=== PATIENT | male | born 1960 | race Caucasian/White ===

== ENCOUNTER 2023-10-09 06:28 | Day surgery (SDC) | payer OTHER, SELFPAY ==
[2023-10-09] VITALS (10 sets, daily range): BP systolic 124–153; BP diastolic 73–98; BMI 34.8
[2023-10-09 11:24] LABS: Glucose - Point of Care 143 mg/dl (70-99)
[2023-10-09] MEDS: TYLENOL 1000 MG PO (11:30)
[2023-10-09] MEDS: LOPRESSOR 100 MG PO (11:30)
[2023-10-09] MEDS: NORMOSOL-R 1000 IV (11:40)
--- NOTE | 2023-10-09 12:08 | W.SUR.PREOP ---
Pre-Operative Surgical Note
-
I have examined this patient prior to the performance of the scheduled procedure.
The patient's condition is unchanged from the time of the current History and
Physical and the patient is able to undergo the scheduled procedure.
[2023-10-09 13:28] LABS: Glucose - Point of Care 133 mg/dl (70-99)
--- NOTE | 2023-10-09 15:20 | W.IMMPOSTOP ---
Surgical Immed Post Op Note
-
Primary Surgeon: Ritesh James MD
Assisting Surgeon: None
Pre-op Diagnosis: Left inguinal hernia
Post-op Diagnosis: Same
Procedure Performed: Robotic left inguinal hernia repair with mesh
Anesthesia Type: General
Specimen / Cultures: Left cord lipoma
Estimated Blood Loss: 3 cc
Complications: None
Operative Findings: Small left indirect inguinal hernia, though aperture fairly large. Small cord lipoma resected and removed. No direct or femoral components. Floor reinforced with a large left Bard 3D max uncoated, polypropylene mesh. Multiple
Veress needle passes made at start of the case as the patient's abdominal wall was thicker than anticipated. Ultimately only 1 rent in the peritoneum was identified. There was a little bit of bleeding in the muscle that appeared to have stopped by
the end of the case. There was also some bleeding noted near mercedes's with placement of our medial mesh fixating stitch, this stopped after tying this down.
POST OP PLAN:
Will discharge home with an ice pack after voiding.
--- NOTE | 2023-10-09 15:24 | OR.RPT ---
Operative Report
Operative Report
Patient Name: Emeterio Martínez
: 1960
Date of Operation: 10/09/2023
Preoperative Diagnosis: Reducible Inguinal hernia, left
Postoperative Diagnosis: Same
Procedure(s):
Robotic Left Inguinal Hernia Repair with mesh, (JEREMIAS approach)
Surgeon(s):
Dr. James
Tube And Manifold Builder(s):
EVELIA Jordan
Anesthesia: General
Estimated Blood Loss: 3 cc
Urine Output: None
Drains/Lines/Implants: Large 3D Max Bard mid weight uncoated polypropylene mesh
Specimens: Left cord lipoma
Indication for surgery: The patient has a history of right inguinal and umbilical hernia repairs with mesh who presented with groin pain and noted on exam to have a Left inguinal Hernia. Following review of therapeutic options they have elected to
undergo a minimally invasive repair.
Operative Findings: Small left indirect inguinal hernia, though aperture fairly large. Small cord lipoma resected and removed. No direct or femoral components. Floor reinforced with a large left Bard 3D max uncoated, polypropylene mesh. Multiple
Veress needle passes made at start of the case as the patient's abdominal wall was thicker than anticipated. Ultimately only 1 rent in the peritoneum was identified. There was a little bit of bleeding in the muscle that appeared to have stopped by
the end of the case. There was also some bleeding noted near jaziel's with placement of our medial mesh fixating stitch, this stopped after tying this down.
Details of the operation:
The patient was brought to the Operating Room and placed in the supine position with the arms tucked. IV antibiotics were infused and Venodyne stockings placed. Following uneventful induction of general endotracheal anesthesia, an orogastric tube
were placed. The abdomen was prepped and draped in the usual sterile fashion. The abdomen was entered using a Veress technique which required 6 passes, our first pass in the right upper quadrant was in the wrong position and insufflation there
distorted the anatomy for the next few passes. We then went to a new spot just the left of midline, but had difficulty here as the air had likely opened up the ETEP space. We then transition back to the original left upper quadrant Veress site and
were able to successfully access the abdomen. Pneumoperitoneum to 15 mmHg was obtained and a 8mm trochar was passed through the abdominal wall roughly 20 cm cephalad to the inguinal canal. We then confirmed that no inadvertent injury was made while
passing the trocar or Veress needle. Indeed only 1 rent in the peritoneum was identified, there was some air in the preperitoneal space. There was some bleeding noted to be coming from the rent but this was minimal. We then placed two additional
8 mm ports in the left upper and right upper quadrants. We then docked the robot with a Prograsper in the left hand port and monopolar scissors in the right. A left indirect hernia could be readily identified, there was no defect on the right side.
We then began by creating a flap on the left side at the level of the ASIS laterally working our way medially to the medial umbilical fold. Staying onto the peritoneum we were able to circumferentially dissect around the hernia sac and and peel it
off of the underlying spermatic cord and testicular vessels, taking care to preserve them. Medially we identified the midline pubis as well as Jaziel's ligament and ensured to dissect 2 cm below the pubic rim over the bladder. After exposure of
the entire myopectineal orifice we identified and reduced: A small sized indirect inguinal hernia through a fairly large aperture, no direct inguinal hernia, no femoral hernia, a medium cord lipoma with both a medial and lateral component. The
lateral component appear to be emanating from a fat pad off of the inferior epigastrics, both were resected and removed.
We then fixated a large 3D max mesh with a 2-0 Vicryl stitch at coopers medially and superior laterally. Our stitch at coopers did cause some bleeding briefly despite preemptively cauterizing some of the few small veins in the area. This bleeding
stopped with tying down of the stitch. The flap was then closed with a running 2-0 barbed monocryl suture ensuring that the tail was cut flush with the medial fat pad so that no barbs were exposed. During the closure of the flap an Angiocath was
inserted and 30 cc of quarter percent Marcaine was instilled. The area in the flap cavity was then evacuated of air confirming that the mesh was flush and there were no folds. No rent in the peritoneum was noted. All needles, instruments and cord
lipoma specimen were then removed and the robot was undocked. Our Veress site was confirmed to not be hemostatic, and the lateral ports were removed under direct visualization. The abdomen was then desufflated, and pneumoperitoneum evacuated. All
skin sites were then closed with 4-0 Monocryl followed by Dermabond. Counts were correct and overall, the patient tolerated the procedure well and was taken to the Recovery Room postoperatively in stable condition.
I was the attending physician and performed the procedure with assistance of the VP ACCOUNT DIRECTOR above. I was present for all portions of the case
Ritesh James MD
[2023-10-09 16:32] LABS: Glucose - Point of Care 139 mg/dl (70-99)
== END 2023-10-09 17:25 | disposition home or self-care (01) ==
LOC: SDS 06:28
PROVIDERS: ATTENDING PHYSICIAN Surgery
DX: K40.90 Unilateral inguinal hernia, without obstruction or gangrene, not specified as recurrent (principal); D17.6 Benign lipomatous neoplasm of spermatic cord
CPT/HCPCS: 49650; 88304; 82962; C1781